=== PATIENT | female | born 1950 | race Caucasian/White ===

== ENCOUNTER → 2017-04-16 | Outpatient (CLI) | payer BC ==
[~2017-04-16] MED LIST: ANTIVERT 25MG25 MG PO; AUGMENTIN875 MG/TAB PO; BENICAR; CELEBREX; FISH OIL1 IU PO; GLUCOPHAGE; GLUCOSAMINE/CHONDROI; NEXIUM PO; PAXIL PO; TYLENOL 500MG500 MG PO
== END ==
LOC: MC.RAD 07:50
DX: Z12.31 Encounter for screening mammogram for malignant neoplasm of breast (principal)

== ENCOUNTER → 2018-05-15 | Outpatient (CLI) | payer MEDICARE, OTHER | LOC: MC.RAD 07:26 | DX: Z12.31 Encounter for screening mammogram for malignant neoplasm of breast (principal) ==

== ENCOUNTER 2019-04-22 21:46 | Emergency (ER) | payer MEDICARE, OTHER ==
[~2019-04-22] VITALS: Ht 167.6 cm; Wt 90.9 kg
[2019-04-22 21:51] VITALS: TEMP 97.5
[2019-04-22 22:43] LABS: BASO # 0.1 (0.0-0.2); BASO % 0.9 % (0.0-2.0); EOS # 0.4 (0.0-0.7); EOS % 3.2 % (0-4.0); GRAN # 8.1 (1.4-6.5); GRAN % 65.8 % (42.2-75.2); HEMATOCRIT 39.8 % (37.0-47.0); HEMOGLOBIN 13.4 g/dl (12.5-16.0); LYMPH # 2.6 (1.2-3.4); LYMPH % 21.2 % (20.0-51.0); MEAN CELL VOLUME 90 fl (80.0-100.0); MEAN CORPUSCULAR HEMOGLOBIN 30 pg (27.0-31.0); MEAN CORPUSCULAR HGB CONC 34 g/dl (33.0-37.0); MEAN PLATELET VOLUME 9.2 fl (7.4-10.4); MONO % 8.2 % (1.7-9.3); PLATELET COUNT 325 K/mm3 (130-400); RED BLOOD COUNT 4.44 M/mm3 (4.10-5.30); REDCELL DISTRIBUTION WIDTH-CV 13.1 % (11.5-14.5)
[2019-04-22 22:47] LABS: INR 0.9 (0.8-3.0); PROTHROMBIN TIME 10.9 SECONDS (9.7-12.8)
[2019-04-22 22:53] LABS: ALANINE AMINOTRANSFERASE 19 U/L (9-52); ALBUMIN 4.5 gm/dL (3.5-5.0); ALKALINE PHOSPHATASE 106 U/L (50-136); ANION GAP 10 mmol/L (7-16); AST,SGOT 29 U/L (15-37); BILIRUBIN,TOTAL 0.3 mg/dL (0.0-1.0); BLOOD UREA NITROGEN 24 mg/dL (7-17); CARBON DIOXIDE 24 mmol/L (22-30); CHLORIDE 105 mmol/L (98-107); CREATINE KINASE 62 U/L (30-135); CREATININE, serum 0.85 (0.52-1.25); GLUCOSE 167 mg/dL (74-106); MAGNESIUM 1.5 mg/dL (1.6-2.3); POTASSIUM 3.8 mmol/L (3.4-5.0); SODIUM 139 mmol/L (137-145); TOTAL PROTEIN 7.8 gm/dL (6.4-8.2)
[2019-04-22 23:05] LABS: TROPONIN-I < 0.012 ng/mL (0.000-0.035)
[2019-04-22 23:24] LABS: COLLECTION METHOD CLEAN CATCH
[2019-04-22 23:41] LABS: PH 5 (5-8); SQUAMOUS EPITHELIAL None Seen /hpf; URINE APPEARANCE Clear; URINE BACTERIA None Seen /hpf; URINE BILIRUBIN Negative (NEGATIVE); URINE BLOOD 1+ (NEGATIVE); URINE COLOR Straw; URINE GLUCOSE Negative (NEGATIVE); URINE KETONE Negative (NEGATIVE); URINE LEUKOCYTE ESTERASE Negative (NEGATIVE); URINE NITRATE Negative (NEGATIVE); URINE PROTEIN(semi-quant) Negative (NEGATIVE); URINE RBC 0-2 /hpf; URINE UROBILINOGEN Negative (NEGATIVE)
[2019-04-23 02:28] VITALS: BP 136/88; PULSE 96
== END 2019-04-23 02:28 | disposition home or self-care (01) ==
LOC: COL.ER 21:46
PROVIDERS: Emergency Medicine
DX: T50.905A Adverse effect of unspecified drugs, medicaments and biological substances, initial encounter (principal); I10 Essential (primary) hypertension; F32.9 Major depressive disorder, single episode, unspecified; E78.5 Hyperlipidemia, unspecified; Z98.890 Other specified postprocedural states; Z90.710 Acquired absence of both cervix and uterus
CPT/HCPCS: J2060; J3475; J7030

== ENCOUNTER → 2019-05-29 | Outpatient (CLI) | payer MEDICARE, OTHER | LOC: MC.RAD 07:12 | DX: Z12.31 Encounter for screening mammogram for malignant neoplasm of breast (principal) ==

== ENCOUNTER → 2020-01-15 | Outpatient (CLI) | payer MEDICARE, OTHER | LOC: COL.RAD 07:54 | DX: M16.12 Unilateral primary osteoarthritis, left hip (principal) | CPT/HCPCS: J3301; Q9967 ==

== ENCOUNTER → 2020-06-18 | Outpatient (CLI) | payer MEDICARE, OTHER | LOC: COL.LAB 11:58 | DX: Z01.812 Encounter for preprocedural laboratory examination (principal); Z01.83 Encounter for blood typing; M16.12 Unilateral primary osteoarthritis, left hip ==

== ENCOUNTER 2020-06-23 05:10 | Day surgery (SDC) | payer MEDICARE, OTHER ==
[2020-06-23] VITALS (11 sets, daily range): BP systolic 94–145; BP diastolic 40–89; PULSE 59–67; TEMP 97.5–9735
[~2020-06-23] VITALS: Ht 167.6 cm; Wt 91.0 kg
[2020-06-23] MEDS ORDERED: LOPRESSOR 550 MG/TAB PO (05:33)
[2020-06-23] MEDS ORDERED: PRILOSEC 20MG20 MG PO (05:33)
[2020-06-23] MEDS ORDERED: ASPIRIN 81M81 MG/TA2 PO (06:09)
[2020-06-23] MEDS ORDERED: COZAAR100 MG PO (09:08)
[2020-06-23] MEDS ORDERED: CELEBREX 200MG200 MG PO (09:08)
[2020-06-23] MEDS ORDERED: DOXYCYCLINE 10100 MG PO (09:10)
[2020-06-23] MEDS ORDERED: ZOCOR 20MG20 MG PO (09:11)
[2020-06-23] MEDS ORDERED: PAXIL 10MG10 MG PO (09:16)
[2020-06-23] MEDS ORDERED: CATAPRES 0.1MG0.1 MG PO (09:17)
[2020-06-23] MEDS ORDERED: HCTZ 25MG TAB25 MG PO (09:17)
[2020-06-23] MEDS ORDERED: FOLIC ACID0.4 MG PO (09:23)
[2020-06-23] MEDS ORDERED: TYLENOL 325MG325 MG PO (09:23)
[2020-06-23] MEDS ORDERED: NATURAL IRON65 MG PO (09:25)
[2020-06-23] MEDS ORDERED: VTAMINC250TA PO (09:25)
[2020-06-23] MEDS ORDERED: PAXIL40 MG PO (09:52)
--- NOTE | 2020-06-23 12:14 | NUR ---
PT TO ROOM 330 PER BED WITH REPORT FROM MARY MATTRESS PACKER @1120. PT IS A/O X3 LUNGS CLEAR, BOWEL SOUNDS PRESENT. DRESSING TO LEFT HIP CDI WITH OCCLUSIVE BULKY DRESSING INPLACE. SCDS TEDS BILATERALLY. IV TO PUMP PER ORDERS. PEDAL PULSES PALPABLE. PT AT BEDSIDE. ICE WATER PROVIDED TO BEDSIDE TABLE.
--- NOTE | 2020-06-23 15:13 | NUR ---
PT UP TO RECLINER THIS PM. PT TOLERATING WELL.
--- NOTE | 2020-06-23 15:18 | NUR ---
PT UP WITH THERAPY AND COMPLETED INITIAL EVAL. VOIDED AND RETURNED TO BED.
--- NOTE | 2020-06-23 15:59 | NUR ---
PT REPORTING INCREASING PAIN AFTER WORKING WITH THERAPY AND VOIDING. PO MEDS GIVEN ORDERED.
--- NOTE | 2020-06-23 20:40 | NUR ---
Pt. sitting up in bed. Pt. is A&OX3, assessment complete. IV to rt. hand patent, IV fluids infusing per orders. Pt. reports pain at a 5 on pain scale, gave pain meds per orders. Dressing to lt. hip CDI. Pt. denies further needs, call light within reach.
[2020-06-24 00:35] VITALS: BP 130/56; PULSE 71; TEMP 98.7
[2020-06-24 03:50] VITALS: BP 137/56; PULSE 67; TEMP 98.4
[2020-06-24 07:38] LABS: HEMOGLOBIN 10.9 g/dl (12.5-16.0)
[2020-06-24 07:40] LABS: HEMATOCRIT 33.4 % (37.0-47.0)
--- NOTE | 2020-06-24 09:21 | NUR ---
Initial visit; Patient thanked Base Manager for looking in on her. Patient states she is in two Bible studies and they are all keeping her in their prayers. Chaplaim stated that she is in good hands and would like to keep her in Base Manager's prayers as well. Patient thanked Base Manager.
[2020-06-24 09:39] VITALS: BP 120/42; PULSE 65; TEMP 98.2
--- NOTE | 2020-06-24 09:41 | NUR ---
PT UP WITH THERAPY COMPLETED ALL REQUIREMENTS. DRESSING TO LEFT HIP CDI. PT INDEPENDENT IN ROOM. PAIN WELL CONTROLLED WITH PO MEDS.
--- NOTE | 2020-06-24 10:27 | NUR ---
DRESSING CHANGE COMPLETE. INCISION CDI WITH WELL APPROXIMATED EDGES. PT TOLERATED WELL.
[2020-06-24 12:24] VITALS: BP 131/63; PULSE 67; TEMP 97.7
[2020-06-24] MEDS ORDERED: ASPI325T6 PO (12:54)
[2020-06-24] MEDS ORDERED: ROXICODONE 55 MG/TAB PO (12:54)
[2020-06-24] MEDS ORDERED: ULTRAM 50MG TAB50 MG PO (12:54)
[2020-06-24] MEDS ORDERED: SENOKOT S 50 MG1 TAB PO (12:55)
--- NOTE | 2020-06-24 13:59 | NUR ---
DISCHARGE INSTRUCTIONS REVIEWED WITH PT. QUESTIONS ANSWERED. PT CALLED FOR RIDE AND WILL LET STAFF KNOW WHEN ARRIVES.
== END 2020-06-24 14:15 | disposition home or self-care (01) ==
LOC: INPTSU 05:10 → JCC 05:10 → SDCO 05:10 → JCC 07:30 → EDSTATUS 10:15 → JCC 11:12 → INPTSU 11:12 → SDCO 06-24 14:15 → JCC 06-24 14:15
PROVIDERS: Orthopaedic Surgery
DX: M16.12 Unilateral primary osteoarthritis, left hip (principal); E11.22 Type 2 diabetes mellitus with diabetic chronic kidney disease; I12.9 Hypertensive chronic kidney disease with stage 1 through stage 4 chronic kidney disease, or unspecified chronic kidney disease; N18.31 Chronic kidney disease, stage 3a; F32.9 Major depressive disorder, single episode, unspecified; F41.9 Anxiety disorder, unspecified; K21.9 Gastro-esophageal reflux disease without esophagitis; Z79.1 Long term (current) use of non-steroidal anti-inflammatories (NSAID); Z79.82 Long term (current) use of aspirin; Z88.8 Allergy status to other drugs, medicaments and biological substances; Z91.040 Latex allergy status; Z79.899 Other long term (current) drug therapy; Z87.891 Personal history of nicotine dependence; Z96.641 Presence of right artificial hip joint; Z96.651 Presence of right artificial knee joint
CPT/HCPCS: A4314; A9284; C1713; C1776; J0690; J1100; J2250; J2370; J2405; J2704; J3010; J7030

== ENCOUNTER → 2020-09-01 | Outpatient (CLI) | payer MEDICARE, OTHER ==
[~2020-09-01] MED LIST changes: +ASPI325T6 PO; +ASPIRIN 81M81 MG/TA2 PO; +CATAPRES 0.1MG0.1 MG PO; +CELEBREX 200MG200 MG PO; +COZAAR100 MG PO; +DOXYCYCLINE 10100 MG PO; +FOLIC ACID0.4 MG PO; +HCTZ 25MG TAB25 MG PO; +LOPRESSOR 550 MG/TAB PO; +NATURAL IRON65 MG PO; +PAXIL 10MG10 MG PO; +PAXIL40 MG PO; +PRILOSEC 20MG20 MG PO; +ROXICODONE 55 MG/TAB PO; +SENOKOT S 50 MG1 TAB PO; +TYLENOL 325MG325 MG PO; +ULTRAM 50MG TAB50 MG PO; +VTAMINC250TA PO; +ZOCOR 20MG20 MG PO
== END ==
LOC: MC.RAD 08:12
DX: Z12.31 Encounter for screening mammogram for malignant neoplasm of breast (principal)

== ENCOUNTER → 2021-10-06 | Outpatient (CLI) | payer MEDICARE, OTHER | LOC: MC.RAD 07:54 | DX: Z12.31 Encounter for screening mammogram for malignant neoplasm of breast (principal) ==

== ENCOUNTER → 2021-11-09 | Outpatient (CLI) | payer MEDICARE, OTHER ==
[~2021-11-09] VITALS: Ht 167.6 cm; Wt 93.0 kg
== END ==
LOC: DIET.TELE 11:07

== ENCOUNTER 2022-05-31 11:15 | Outpatient (RCR) | payer MEDICARE, OTHER | END 2022-06-05 | disposition home or self-care (01) | LOC: WSPT | DX: H81.13 Benign paroxysmal vertigo, bilateral (principal) ==

== ENCOUNTER 2022-06-07 11:08 | Outpatient (RCR) | payer MEDICARE, OTHER | END 2022-06-07 12:00 | disposition home or self-care (01) | LOC: WSPT 11:08 | DX: H81.13 Benign paroxysmal vertigo, bilateral (principal) ==

== ENCOUNTER → 2022-12-14 | Outpatient (CLI) | payer MEDICARE, OTHER | LOC: MC.RAD 11-23 08:00 | DX: Z12.31 Encounter for screening mammogram for malignant neoplasm of breast (principal) ==

== ENCOUNTER → 2023-12-17 | Outpatient (CLI) | payer MEDICARE, OTHER | LOC: MC.RAD 07:03 | DX: Z12.31 Encounter for screening mammogram for malignant neoplasm of breast (principal) ==

== ENCOUNTER 2024-02-22 16:05 | Emergency (ER) | payer MEDICARE, OTHER ==
[~2024-02-22] VITALS: Ht 165.1 cm; Wt 86.4 kg
[2024-02-22 16:14] VITALS: TEMP 97.2
[2024-02-22 16:42] LABS: COLLECTION METHOD CLEAN CATCH
[2024-02-22] MEDS ORDERED: NS 1,000 ML IV ONE (16:45)
[2024-02-22 16:55] LABS: PH 6.5 (5.0-8.5); URINE APPEARANCE CLEAR (CLEAR/HAZY); URINE BLOOD TRACE (NEGATIVE); URINE COLOR YELLOW (YELLOW); URINE GLUCOSE NEGATIVE (NEGATIVE); URINE KETONE NEGATIVE (NEGATIVE); URINE NITRATE NEGATIVE (NEGATIVE); URINE PROTEIN(semi-quant) NEGATIVE (NEGATIVE)
[2024-02-22 17:04] LABS: BASO # 0.1 K/mm3 (0.0-0.2); BASO % 0.5 % (0.0-2.0); EOS # 0.2 K/mm3 (0.0-0.7); GRAN # 6.8 K/mm3 (1.4-6.5); GRAN % 68.3 % (42.2-75.2); HEMATOCRIT 39.1 % (37.0-47.0); HEMOGLOBIN 12.5 g/dl (12.5-16.0); MEAN CELL VOLUME 92 fl (80.0-100.0); MEAN CORPUSCULAR HEMOGLOBIN 29 pg (27-31); MEAN CORPUSCULAR HGB CONC 32 g/dl (33.0-37.0); MONO # 0.9 K/mm3 (0.1-0.6); MONO % 8.9 % (1.7-9.3); PLATELET COUNT 269 K/mm3 (130-400); RED BLOOD COUNT 4.27 M/mm3 (4.10-5.30); REDCELL DISTRIBUTION WIDTH-CV 12.9 % (11.5-14.5)
[2024-02-22 17:23] LABS: ALBUMIN 3.9 g/dL (3.4-4.8); BILIRUBIN,TOTAL 0.6 mg/dL (0.2-1.2); CALCIUM 9.8 mg/dL (8.4-10.2); CREATININE, serum 1.2 mg/dL (0.57-1.11); POTASSIUM 3.8 mEq/L (3.5-4.5); TOTAL PROTEIN 7.1 g/dl (6.2-8.1)
[2024-02-22] MEDS ORDERED: NORCO 325 MG-51 TAB PO (18:47)
[2024-02-22] MEDS ORDERED: FLOMAX 0.40.4 MG/CAP PO (18:47)
[2024-02-22 19:00] VITALS: BP 140/94; PULSE 88
[2024-02-22] MEDS ORDERED: Ondansetron 4 MG/2 ML VIAL IV ONE (19:00)
== END 2024-02-22 19:00 | disposition home or self-care (01) ==
LOC: COL.ER 16:05
PROVIDERS: Family Medicine
DX: N13.2 Hydronephrosis with renal and ureteral calculous obstruction (principal); R91.8 Other nonspecific abnormal finding of lung field; Z90.49 Acquired absence of other specified parts of digestive tract; Z91.040 Latex allergy status
CPT/HCPCS: J2405; J7030